=== PATIENT | female | born 1975 | race Two or more races ===

== ENCOUNTER 2024-06-02 14:08 | Outpatient (AMB) | payer MEDICAID, SELFPAY ==
--- NOTE | 2024-06-02 15:13 | PD.ORTHCLVIS ---
Vital signs 06/02/24 15:14 Height 1.6 m Height Method Stated Weight 104.099 kg Weight Measurement Method Standing Scale BMI 40.6 BP 121/84 Blood Pressure Source Automatic Cuff Blood Pressure Location Right Upper Arm Position Sitting Respiration 18 Pulse 87 Pulse Source Monitor Temp 98.1 F Temp Source Temporal Artery Scan Pulse Oximetry (%) 96 Oxygen Delivery Method Room Air Med/Allergies Allergies & Medications Allergies NKA Allergy (Unknown, Uncoded 06/02/24 15:15) No Known Allergies Allergy (Unknown, Uncoded 06/02/24 15:15) Medication Reconciliation pantoprazole 40 mg tablet,delayed release (Protonix) 40 mg PO QDAY #30 tabs 11/13/23 [Rx Confirmed 06/02/24] meloxicam 7.5 mg tablet 7.5 mg PO QDAY #45 tabs 06/02/24 [Rx] Subjective Visit Visit for: new patient and knee Immunization / Flu Flu Vaccine in the Last 12 Months: No Flu Vaccine Exclusion Criteria: No Exclusion Criteria History of Present Illness Chief complaint: KNEE PAIN Date of injury / onset of symptoms: YEARS Patient is a 49-year-old Female with left greater than right knee pain. She has had over 4 injections of both knees. The pain is starting affect her quality life and happiness. She Has not had anti-inflammatories Personal History Occupation: [employer] PMH: none Pain Pain level (0-10): 3 Pain duration: ALL DAY Pain location: outside (lateral) and anterior Pain quality: aching and other (specify) (POPPING SOUND ) Pain timing: increases with activity Associated signs & symptoms: other (specify) Ambulatory data Ambulatory device: none Treatments Number of previous injections: 4 Improvement with previous injections: Yes Improvement with PT: No Improvement with NSAIDS: n/a Review of Systems Review of Systems: All systems negative unless otherwise noted in HPI. Exam Exam Patient is in no acute distress and is cooperative with the examination today. Breathing is nonlabored. In no respiratory distress. Bilateral extremities were evaluated and demonstrates sensation intact to light touch. Palpable pedal pulses are present. No significant edema is present. Bilateral hips were examined. The patient has no pain with log roll of the hips. Internal rotation to 30 degrees and external rotation to 30 degrees is painless. Negative FADIR. The left knee was examined. The left knee is in [varus] alignment. Range of motion from [0-115] degrees. Knee is stable to varus and valgus as well as AP translation with <5mm. Patient has a [negative] McMurrays. There is [no] pain with patellofemoral compression and [no] crepitus noted. The knee is [tender] to palpation [medially]. The right knee was also examined. The right knee is in [varus] alignment. Range of motion from [0-120] degrees. Knee is stable to varus and valgus as well as AP translation with <5mm. Patient has a [negative] McMurrays. There is [no] pain with patellofemoral compression and [no] crepitus noted. The knee is [tender] to palpation [medially]. Assessment and Plan Problem List (1) Degenerative arthritis of knee, bilateral: Status: Acute Plan: Patient is a pleasant 49-year-old female with bilateral knee pain and bilateral knee arthritis. We discussed nonoperative and operative options. At this point in time I would recommend nonoperative treatment. I would like to get weightbearing x-rays as her last x-rays were supine to better serve assess the severity of the arthritis. Will get authorization for cortisone injections at the next visit. I sent her prescription for meloxicam Office Procedures GNS Level of Care Nursing/Assessment Patient Status: Established Patient Nursing Assessment/Reassesment: Medication Reconciliation, Update PMH in EMR and Vital Signs Coordination of Care: Complex Care and Chronic Disease 1-5, Education Complex Pt/Fam, Consent,records obtained, informed consent, 1 Ins Authorization, Lab and Imaging orders, Results/Orders obtained and Staff clarify orders Special Needs: Language special needs Established Patient Charge Established Patient Point Assignment: 125 Established Patient Point Charge: EP Level 4 (120-155) Past Medical History Past Medical History Have you ever been diagnosed with any of the following: Respiratory Problems Smoking: Yes Smoking Exposure: Yes
[2024-06-02 15:14] VITALS: BP 121/84; PULSE 87; RESP 18; TEMP 36.7; O2SAT 96; BMI 40.6
== END 2024-06-02 15:20 | disposition home or self-care (01) ==
LOC: HODSRG 14:08
PROVIDERS: PCP Physician Assistant; Referring Provider Physician Assistant; Supervising Provider Orthopaedic Surgery Adult Reconstructive Orthopaedic Surgery; Visit Provider Orthopaedic Surgery Adult Reconstructive Orthopaedic Surgery
DX: M17.0 Bilateral primary osteoarthritis of knee (principal); M25.562 Pain in left knee; M25.561 Pain in right knee
CPT/HCPCS: 99204; 99214; G0463

== ENCOUNTER 2024-06-15 07:56 | Outpatient (AMB) | payer MEDICAID, SELFPAY ==
[2024-06-15 08:06] VITALS: BP 117/68; PULSE 77; RESP 18; TEMP 36.4; O2SAT 95; BMI 40.9
--- NOTE | 2024-06-15 08:06 | ORTHONT_ITS ---
Vital signs 06/15/24 08:06 Height 1.6 m Height Method Stated Weight 104.808 kg Weight Measurement Method Standing Scale BMI 40.9 BP 117/68 Blood Pressure Source Automatic Cuff Blood Pressure Location Right Upper Arm Position Sitting Respiration 18 Pulse 77 Pulse Source Monitor Temp 97.5 F Temp Source Temporal Artery Scan Pulse Oximetry (%) 95 Oxygen Delivery Method Room Air Med/Allergies Allergies & Medications Allergies NKA Allergy (Unknown, Uncoded 06/15/24 08:07) No Known Allergies Allergy (Unknown, Uncoded 06/15/24 08:07) Medication Reconciliation pantoprazole 40 mg tablet,delayed release (Protonix) 40 mg PO QDAY #30 tabs 11/13/23 [Rx Confirmed 06/15/24] meloxicam 7.5 mg tablet 7.5 mg PO QDAY #45 tabs 06/02/24 [Rx Confirmed 06/15/24] Subjective Visit Visit for: follow up visit and x-rays Immunization / Flu Flu Vaccine in the Last 12 Months: No Flu Vaccine Exclusion Criteria: No Exclusion Criteria History of Present Illness Chief complaint: F/U XRAYS RESULTS Date of injury / onset of symptoms: YEARS Patient is a 49-year-old Female with left greater than right knee pain. She has had over 4 injections of both knees. The pain is starting affect her quality life and happiness. She Has not had anti-inflammatories Personal History Occupation: [employer] PMH: none Pain Pain level (0-10): 0 Pain duration: COMES AND GOES Pain location: outside (lateral) and anterior Pain quality: aching and other (specify) (POPPING SOUND ) Pain timing: increases with activity Associated signs & symptoms: other (specify) Ambulatory data Ambulatory device: none Treatments Number of previous injections: 4 Improvement with previous injections: No Improvement with PT: No Improvement with NSAIDS: n/a Review of Systems Review of Systems: All systems negative unless otherwise noted in HPI. Exam Exam Patient is in no acute distress and is cooperative with the examination today. Breathing is nonlabored. In no respiratory distress. Bilateral extremities were evaluated and demonstrates sensation intact to light touch. Palpable pedal pulses are present. No significant edema is present. Bilateral hips were examined. The patient has no pain with log roll of the hips. Internal rotation to 30 degrees and external rotation to 30 degrees is painless. Negative FADIR. The left knee was examined. The left knee is in [varus] alignment. Range of motion from [0-115] degrees. Knee is stable to varus and valgus as well as AP translation with <5mm. Patient has a [negative] McMurrays. There is [no] pain with patellofemoral compression and [no] crepitus noted. The knee is [tender] to palpation [medially]. The right knee was also examined. The right knee is in [varus] alignment. Range of motion from [0-120] degrees. Knee is stable to varus and valgus as well as AP translation with <5mm. Patient has a [negative] McMurrays. There is [no] pain with patellofemoral compression and [no] crepitus noted. The knee is [tender] to palpation [medially]. X-rays demonstrate moderate joint space narrowing of both knees. There are osteophytes present Assessment and Plan Problem List (1) Degenerative arthritis of knee, bilateral: Status: Acute Plan: Patient is a pleasant 49-year-old female with bilateral knee pain and bilateral knee arthritis. We discussed nonoperative and operative options. She has moderate arthritis we recommend continued conservative treatment. Recommend knee cortisone injections as patient would like to proceed with conservative treatment at this time. The risks and benefits of the procedure were reviewed with the patient and patient gave verbal consent to continue with the procedure. Procedure: performed by Dr. Valdes Using sterile technique the Bilateral knees were thoroughly prepped with alcohol, and approximately 1 cc of Kenalog 40 mg/mL and 4 cc of 1% lidocaine was injected into each knee without resistance into the medial tibial femoral joint space. The patient tolerated the procedure. Office Procedures GNS Level of Care Nursing/Assessment Patient Status: Established Patient Nursing Assessment/Reassesment: Medication Reconciliation, Update PMH in EMR and Vital Signs Coordination of Care: Complex Care and Chronic Disease 1-5, Education Complex Pt/Fam, Consent,records obtained, informed consent, Results/Orders obtained and Staff clarify orders Special Needs: Language special needs Established Patient Charge Established Patient Point Assignment: 95 Established Patient Point Charge: EP Level 3 (80-115) Surgical Proc/IM SQ injection Major Surgical Procedure: Yes (knee injections ) Medication Given Medication Given Medication Given: Yes Documented Dose Given: 8 Route: Infiitration Medication Given Medication Given Medication Given: Yes Documented Dose Given: 2 Route: Infiitration Office Meds Xylocaine 10 mg/mL (1 %) injection solution Performing Provider: Unruly Valdes MD Performing Location: [facility] Administered by: Unruly Valdes MD on 06/15/24 08:32 Dose Route Admin Location Dispensed Lot Number Expiration Date [facility] Supervisor [employer] 40 mL Infiltration 40 mL [id number] [facility] triamcinolone acetonide 40 mg/mL suspension for injection Performing Provider: Unruly Valdes MD Performing Location: [facility] Administered by: Unruly Valdes MD on 06/15/24 08:32 Dose Route Admin Location Dispensed Lot Number Expiration Date [facility] Supervisor [employer] 80 mg intra-articular 2 mL [id number] [employer] Past Medical History Past Medical History Have you ever been diagnosed with any of the following: Respiratory Problems Smoking: Yes Smoking Exposure: Yes
== END 2024-06-15 08:26 | disposition home or self-care (01) ==
LOC: HODSRG 07:56
PROVIDERS: PCP Physician Assistant; Referring Provider Physician Assistant; Supervising Provider Orthopaedic Surgery Adult Reconstructive Orthopaedic Surgery; Visit Provider Orthopaedic Surgery Adult Reconstructive Orthopaedic Surgery
DX: M17.0 Bilateral primary osteoarthritis of knee (principal); M25.562 Pain in left knee; M25.561 Pain in right knee
CPT/HCPCS: 20610; 99213; J3301; J3490; G0463

== ENCOUNTER → 2024-07-19 | Outpatient (CLI) | payer MEDICAID, SELFPAY ==
--- NOTE | 2024-07-19 13:45 | XR_ITS ---
Examination: Screening digital mammography, bilateral Computer aided detection 3-D breast Tomosynthesis, bilateral Date and time of exam: July 19, 2024 1340 hours Compared to mammograms dating to March 25, 2022 Indication: Screening Technique: Nonmagnified MLO, CC views of the breasts to been obtained, reconstructed from 3-D Tomosynthesis images. R2 computer aided detection program utilized for evaluation of suspicious masses and/or abnormal calcifications. 3-D Tomosynthesis images obtained. Findings: Scattered areas of fibroglandular density. Benign calcifications. No interval suspicious masses Impression: BI-RADS category II: Benign Findings. Recommend 1 year follow-up mammogram.
== END | disposition home or self-care (01) ==
LOC: CDIM 13:23
PROVIDERS: Referring Provider Student in an Organized Health Care Education/Training Program; Visit Provider Student in an Organized Health Care Education/Training Program
DX: Z12.31 Encounter for screening mammogram for malignant neoplasm of breast (principal); R92.323 Mammographic fibroglandular density, bilateral breasts; R92.1 Mammographic calcification found on diagnostic imaging of breast
CPT/HCPCS: 77063; 77067

== ENCOUNTER 2024-09-15 14:32 | Outpatient (AMB) | payer MEDICAID, SELFPAY ==
--- NOTE | 2024-09-15 14:37 | ORTHONT_ITS ---
Vital signs 09/15/24 14:40 Height 1.6 m Height Method Stated Weight 102.512 kg Weight Measurement Method Standing Scale BMI 40.0 BP 115/79 Blood Pressure Source Automatic Cuff Blood Pressure Location Left Upper Arm Position Sitting Respiration 19 Pulse 92 Pulse Source Monitor Temp 96.2 F L Temp Source Temporal Artery Scan Pulse Oximetry (%) 95 Oxygen Delivery Method Room Air Med/Allergies Allergies & Medications Allergies NKA Allergy (Unknown, Uncoded 09/15/24 14:40) No Known Allergies Allergy (Unknown, Uncoded 09/15/24 14:40) Medication Reconciliation pantoprazole 40 mg tablet,delayed release (Protonix) 40 mg PO QDAY #30 tabs 11/13/23 [Rx Confirmed 09/15/24] meloxicam 7.5 mg tablet 7.5 mg PO QDAY #45 tabs 06/02/24 [Rx Confirmed 09/15/24] Exam Exam Patient is in no acute distress and is cooperative with the examination today. Breathing is nonlabored. In no respiratory distress. Bilateral extremities were evaluated and demonstrates sensation intact to light touch. Palpable pedal pulses are present. No significant edema is present. Bilateral hips were examined. The patient has no pain with log roll of the hips. Internal rotation to 30 degrees and external rotation to 30 degrees is painless. Negative FADIR. The left knee was examined. The left knee is in [varus] alignment. Range of motion from [0-115] degrees. Knee is stable to varus and valgus as well as AP translation with <5mm. Patient has a [negative] McMurrays. There is [no] pain with patellofemoral compression and [no] crepitus noted. The knee is [tender] to palpation [medially]. The right knee was also examined. The right knee is in [varus] alignment. Range of motion from [0-120] degrees. Knee is stable to varus and valgus as well as AP translation with <5mm. Patient has a [negative] McMurrays. There is [no] pain with patellofemoral compression and [no] crepitus noted. The knee is [tender] to palpation [medially]. X-rays demonstrate moderate joint space narrowing of both knees. There are osteophytes present Assessment and Plan Problem List (1) Degenerative arthritis of knee, bilateral: Status: Acute Plan: Patient is a pleasant 49-year-old female with bilateral knee pain and bilateral knee arthritis. We discussed nonoperative and operative options. She has moderate arthritis we recommend continued conservative treatment. Recommend knee cortisone injections as patient would like to proceed with conservative treatment at this time. The risks and benefits of the procedure were reviewed with the patient and patient gave verbal consent to continue with the procedure. Procedure: performed by Dr. Valdes Using sterile technique the Bilateral knees were thoroughly prepped with alcohol, and approximately 1 cc of Kenalog 40 mg/mL and 4 cc of 1% lidocaine was injected into each knee without resistance into the medial tibial femoral joint space. The patient tolerated the procedure. Office Procedures GNS Level of Care Nursing/Assessment Patient Status: Established Patient Nursing Assessment/Reassesment: Medication Reconciliation, Update PMH in EMR and Vital Signs Coordination of Care: Complex Care and Chronic Disease 1-5, Education Complex Pt/Fam, Consent,records obtained, informed consent, Results/Orders obtained and Staff clarify orders Established Patient Charge Established Patient Point Assignment: 95 Established Patient Point Charge: EP Level 3 (80-115) MA Intake Visit Data Collection New Patient or Established: Established Patient (seen at [facility] within 3 years) Reason for Visit:: F/U BILATERAL KNEE INJECTIONS Seen by Clinical Staff ONLY (RN/MA): No Art Director Required: Yes PCP or OBGYN visit in last 3 months: Yes Hx Now: No Do You Feel Safe at Home: Yes Authorities Contacted: N/A Questionairres Past Medical History Past Medical History Have you ever been diagnosed with any of the following: Respiratory Problems Smoking: Yes Smoking Exposure: Yes Subjective Visit Visit for: follow up visit, knee and injections Immunization / Flu Flu Vaccine in the Last 12 Months: No Flu Vaccine Exclusion Criteria: No Exclusion Criteria History of Present Illness Chief complaint: bilateral knee pain Patient is a 49-year-old Female with left greater than right knee pain. She has had over 4 injections of both knees. The pain is starting affect her quality life and happiness. She Has not had anti-inflammatories Pain Pain level (0-10): 0 Associated signs & symptoms: none Ambulatory data Ambulatory device: none Treatments Number of previous injections: 2 Improvement with previous injections: Yes Improvement with PT: No Improvement with NSAIDS: no Review of Systems Review of Systems: All systems negative unless otherwise noted in HPI.
[2024-09-15 14:40] VITALS: BP 115/79; PULSE 92; RESP 19; TEMP 35.7; O2SAT 95; BMI 40.0
== END 2024-09-15 15:09 | disposition home or self-care (01) ==
LOC: HODSRG 14:32
PROVIDERS: PCP Family Medicine; Referring Provider Family Medicine; Supervising Provider Orthopaedic Surgery Adult Reconstructive Orthopaedic Surgery; Visit Provider Orthopaedic Surgery Adult Reconstructive Orthopaedic Surgery
DX: M17.0 Bilateral primary osteoarthritis of knee (principal); M25.562 Pain in left knee; M25.561 Pain in right knee
CPT/HCPCS: 20610; 99213; J3301; J3490; G0463

== ENCOUNTER 2024-11-02 18:10 | Emergency (ER) | payer MEDICAID, SELFPAY ==
[2024-11-02 19:09] VITALS: BP 145/85; PULSE 92; RESP 18; TEMP 36.9; O2SAT 99; BMI 39.8
--- NOTE | 2024-11-02 19:58 | XR_ITS ---
Examination: Transvaginal ultrasound of the pelvis, complete Technique: Transvaginal sonographic images pelvis performed using tinsley scale imaging Exam date and time: November 02, 2024 2008 hours INDICATIONS: Pelvic pain and bleeding beginning 3 days ago FINDINGS: Uterus 9.1 cm endometrial stipe 0.5 cm No uterine mass or intrauterine gestation Ovaries obscured by bowel gas IMPRESSION: Limited study No uterine mass or intrauterine gestation.
--- NOTE | 2024-11-02 20:07 | EDNOTE_ITS ---
ED Female Urogenital RME/HPI General Chief complaint: Abdominal Pain Stated complaint: LOWER ABDOMINAL PAIN Time Seen by Provider: 11/02/24 19:57 Arrival date/time: 11/02/24 18:10 49F with no significant PMH presents to ED with 3 days of pelvic pain and possibly some vaginal spotting. Patient denies N/V, diarrhea, and dysuria. Limitations: no limitations Related Data Previous Rx's ?Medication ?Instructions ?Recorded pantoprazole 40 mg tablet,delayed 40 mg PO QDAY #30 ta bs 11/13/23 release (Protonix) meloxicam 7.5 mg tablet 7.5 mg PO QDAY #45 tabs 05/10 12/30 Allergies Allergy/AdvReac Type Severity Reaction Status Date / Time NKA Allergy Unknown Uncoded 11/02/24 18:14 No Known Allergies Allergy Unknown Uncoded 11/02/24 18:14 Review of Systems Review of Systems Systems Reviewed: All systems reviewed, normal except as documented Constitutional Constitutional: Reports system reviewed and no additional complaints, except as documented, Denies fever(s) and Denies headache(s) ENT Ears, Nose, Mouth, and Throat: Denies disequilibrium and Denies headache(s) Cardiovascular Cardiovascular: Reports system reviewed and no additional complaints, except as documented, Denies chest pain and Denies dyspnea Respiratory Respiratory: Reports system reviewed and no additional complaints, except as documented, Denies cough and Denies dyspnea Gastrointestinal Gastrointestinal: Reports system reviewed and no additional complaints, except as documented, Denies abdominal pain, Denies nausea and Denies vomiting Genitourinary Genitourinary: Reports as per HPI, Reports abnormal vaginal bleeding and Reports pelvic pain Neurologic Neurologic: Reports system reviewed and no additional complaints, except as documented, Denies confusion, Denies disequilibrium and Denies headache(s) Psychiatric Psychiatric: Denies confusion Past Medical History Past Medical History NEUROLOGIC: Positive Neurological Disorders CARDIAC: Positive Cardiac Disorders RESPIRATORY: Positive Smoking and Smoking Exposure GASTROINTESTINAL: Positive Gastrointestinal Disorders GENITOURINARY: Positive Genitourinary Disorders Social History SMOKING STATUS: Never smoker ED Exam General Limitations: Present no limitations General appearance: Present alert and in no apparent distress Head Head exam: Present atraumatic Eye Eye exam: Present normal appearance, PERRL and EOMI ENT ENT exam: Present normal exam, normal oropharynx and mucous membranes moist Neck Neck exam: Present normal inspection, full ROM and trachea midline Chest Chest inspection: Present normal inspection and symmetric chest wall rise Respiratory Respiratory exam: Present normal lung sounds bilaterally Cardiovascular Cardiovascular exam: Present regular rate, normal rhythm and normal heart sounds Abdominal Exam Abdominal exam: Present soft and normal bowel sounds Extremities Exam Extremities exam: Present normal inspection and full ROM Back Exam Back exam: Present normal inspection and full ROM Neurological Exam Neurological exam: Present alert, oriented X3 and CN II-XII intact Psychiatric Psychiatric exam: Present normal affect and normal mood Skin Skin exam: Present warm, dry, intact and normal color Course Quality Measures none Orders Category Date Time Status US transvaginal Stat Exams 11/02/24 19:58 Completed CBC Stat Lab 11/02/24 20:52 Completed CMP [Comprehensive Metabolic Panel] Stat Lab 11/02/24 20:52 Completed HCG Qualitative,Urine Stat Lab 11/02/24 20:13 Completed Urinalysis, C/S if Indicated Stat Lab 11/02/24 20:13 Completed Vital Signs Vital signs: Vital Signs Temperature 98.5 F 11/02/24 19:09 Pulse Rate 92 11/02/24 19:09 Respiratory Rate 18 11/02/24 19:09 Blood Pressure 145/85 H 11/02/24 19:09 Pulse Oximetry (%) 99 11/02/24 19:09 Oxygen Delivery Method Room Air 11/02/24 19:09 O2 at 99% on RA and WNLs Urogenital - Female MDM Narrative MDM Narrative:: 49F with no significant PMH presents to ED with 3 days of pelvic pain and possibly some vaginal spotting. Patient denies N/V, diarrhea, and dysuria. Physical exam reveals no ab tenderness. Patient is afebrile, calm, and alert. US unremarkable. No leukocytosis or anemia. HCG neg. UA clean. CMP unremarkable. Patient data External records reviewed:: [facility] previous records Clinical information provided by:: patient Social determinants that could affect healthcare access:: none Patient has the following chronic illnesses:: none How is presenting disease/condition affected by chronic disease/condition?: no chronic disease Evaluation data The following diagnostics were reviewed and interpreted by me:: lab results and radiology exam(s) Lab and/or radiology exams considered but not ordered:: ordered Interpretation Summary: above Medications / Prescriptions Medications or Prescriptions considered but not ordered:: not ordered Medication administrations:: n/a Consultations Consultation(s) initiated? (list below): No Diagnosis Urogenital Female Differential Diagnosis: urinary tract infection, bacterial vaginosis, trichomoniasis, cervicitis, ovarian cyst, vaginitis, ruptured ovarian cyst, cyst of Bartholin's gland, cystitis, dysmenorrhea and other (appy, torsion, pelvic pain) Most likely diagnosis given after review of the tests above:: pelvic pain Admission Indicated Admission indicated?: not indicated Admission Request Was there a request for admission?: No Disposition Plan Disposition Plan: Discharge Discharge Attestation Discharge Attestation: The patient and all family members were given an opportunity to ask questions and understood the discharge instructions. Discharge instructions specifically effects, indications for sooner follow up or return to the emergency department, and the expected course of current diagnosis. Patient condition: Stable Discharge Plan Plan Patient Disposition: HOME (Self Care) Disposition Comment: Stable Prescriptions/Referrals Prescriptions/Med Rec: No Action meloxicam 7.5 mg tablet 7.5 mg PO QDAY Qty: 45 3RF pantoprazole [Protonix] 40 mg tablet,delayed release (DR/EC) 40 mg PO QDAY Qty: 30 0RF Referrals: No Primary/Family,Physician [Primary Care Provider] - In 1 week Problem List Clinical Impression: Pelvic pain Patient/Caregiver Discharge Instructions Education Materials: ED Abdominal Pain Unkn Cause Fem Additional Instructions: Please follow-up with PCP/OGYN within 24-48 hours and return immediately if symptoms worsen. Print Language: [place] Stand Alone Forms: Patient Portal Info Letter PA/WEB DEVELOPMENT MANAGER Supervising Physician MARCI/WEB DEVELOPMENT MANAGER Supervising Physician: Dr. Irwin
[2024-11-02 20:31] LABS: Collection Type, Urine Clean Catch; WBC,Urine 0 /hpf (0-5)
[2024-11-02 20:37] LABS: HCG Qualitative,Urine Negative
[2024-11-02 20:55] LABS: Amorphous Crystals,Urine Present (Absent); Bilirubin,Urine Negative (Negative); Blood,Urine Negative (Negative); Clarity,Urine Turbid (Clear/Hazy); Color,Urine Lt-Yellow (Lt Yel-Yel); Culture Indicated,Urine Not Indicated; Glucose, Urine Negative (Negative); Ketones,Urine Negative (Negative); Leukocyte Esterase,Urine Negative (Negative); Nitrite,Urine Negative (Negative); Protein,Urine Trace (Neg - Trace); RBC,Urine < 1 /hpf (0-3); Specific Gravity,Urine 1.027 (1.001-1.035); Squamous Epithelial Cell,Urine 1 /hpf (0-5); Urobilinogen,Urine Negative mg/dL (0.0-1.0)
[2024-11-02 21:24] LABS: Basophils % (Auto) 1 % (0-2.5); Eosinophils # (Auto) 0.1 Thou/mm3 (0.0-0.5); Eosinophils % (Auto) 1 % (0-10); Hematocrit 41.9 % (36.0-46.0); Hemoglobin 13.6 g/dL (12.0-16.0); Immature Granulocytes % (Auto) 0 % (0-0); Immature Granulocytes Auto 0.03 Thou/mm3 (0.00-0.00); Lymphocytes # (Auto) 2.1 Thou/mm3 (1.0-4.8); Lymphocytes % (Auto) 24 % (10-50); Mean Corpuscular HGB Conc 32.5 g/dl (31.0-37.0); Mean Corpuscular Hemoglobin 27.8 pg (25.0-35.0); Mean Corpuscular Volume 86 fL (80-100); Monocytes # (Auto) 0.6 Thou/mm3 (0.0-0.8); Monocytes % (Auto) 7 % (0-12); Neutrophils # (Auto) 5.9 Thou/mm3 (1.8-7.7); Neutrophils % (Auto) 67 % (37-80); Nucleated Red Blood Cell % 0 /100 WBC (0); Platelet Count 328 Thou/mm3 (140-440); RDW Standard Deviation 38.9 fL (36.4-46.3); White Blood Count 8.8 Thou/mm3 (3.6-11.0)
[2024-11-02 21:43] LABS: Alanine Aminotransferase 14 U/L (10-49); Albumin, Serum 4.4 gm/dL (3.5-5.0); Albumin/Globulin Ratio 1.3 (1.2-2.2); Alkaline Phosphatase 86 U/L (46-116); Anion Gap 9 (7-16); Aspartate Amino Transferase 15 U/L (0-34); BUN/Creatinine Ratio 21 Ratio (12-20); Bilirubin,Total 0.3 mg/dL (0.3-1.2); Blood Urea Nitrogen 15 mg/dL (9-23); Calcium 9.8 mg/dL (8.3-10.6); Calcium (Corrected) 9.8 mg/dL (8.5-10.1); Carbon Dioxide 28.2 mMol/L (20.0-31.0); Chloride 103 mMol/L (98-107); Creatinine (Component) 0.7 mg/dL (0.6-1.3); Estimated Creatinine Clearance 110.9 mL/min (>60); Globulin 3.3 gm/dL (2.3-3.5); Glucose 104 mg/dL (74-106); Osmolality,Calculated 280 (275-295); Potassium 4.1 mMol/L (3.4-5.1); Sodium 140 mMol/L (136-145); Total Protein 7.7 gm/dL (5.7-8.2); eGFR > 60 See Note
== END 2024-11-02 22:22 | disposition home or self-care (01) ==
PROVIDERS: Physician Assistant; Emergency Provider Emergency Medicine
DX: R10.2 Pelvic and perineal pain (principal)
CPT/HCPCS: 36415; 76830; 80053; 81001; 81025; 85025; 99284

== ENCOUNTER 2024-12-05 15:10 | Outpatient (AMB) | payer MEDICAID, SELFPAY ==
[2024-12-05 15:18] VITALS: BP 110/78; PULSE 85; RESP 17; TEMP 36.4; O2SAT 94; BMI 39.5
--- NOTE | 2024-12-05 15:18 | PD.ORTHCLVIS ---
Vital signs 12/05/24 15:18 Height 1.6 m Height Method Stated Weight 101.151 kg Weight Measurement Method Standing Scale BMI 39.5 BP 110/78 Blood Pressure Source Automatic Cuff Blood Pressure Location Left Upper Arm Position Sitting Respiration 17 Pulse 85 Pulse Source Monitor Temp 97.6 F Temp Source Temporal Artery Scan Pulse Oximetry (%) 94 L Oxygen Delivery Method Room Air Med/Allergies Allergies & Medications Allergies NKA Allergy (Unknown, Uncoded 12/05/24 15:19) No Known Allergies Allergy (Unknown, Uncoded 12/05/24 15:19) Medication Reconciliation pantoprazole 40 mg tablet,delayed release (Protonix) 40 mg PO QDAY #30 tabs 11/13/23 [Rx Confirmed 12/05/24] meloxicam 7.5 mg tablet 7.5 mg PO QDAY #45 tabs 06/02/24 [Rx Confirmed 12/05/24] Exam Exam Patient is in no acute distress and is cooperative with the examination today. Breathing is nonlabored. In no respiratory distress. Bilateral extremities were evaluated and demonstrates sensation intact to light touch. Palpable pedal pulses are present. No significant edema is present. Bilateral hips were examined. The patient has no pain with log roll of the hips. Internal rotation to 30 degrees and external rotation to 30 degrees is painless. Negative FADIR. The left knee was examined. The left knee is in [varus] alignment. Range of motion from [0-115] degrees. Knee is stable to varus and valgus as well as AP translation with <5mm. Patient has a [negative] McMurrays. There is [no] pain with patellofemoral compression and [no] crepitus noted. The knee is [tender] to palpation [medially]. The right knee was also examined. The right knee is in [varus] alignment. Range of motion from [0-120] degrees. Knee is stable to varus and valgus as well as AP translation with <5mm. Patient has a [negative] McMurrays. There is [no] pain with patellofemoral compression and [no] crepitus noted. The knee is [tender] to palpation [medially]. X-rays demonstrate moderate joint space narrowing of both knees. There are osteophytes present Assessment and Plan Problem List (1) Degenerative arthritis of knee, bilateral: Status: Acute Plan: Patient is a pleasant 49-year-old female with bilateral knee pain and bilateral knee arthritis. We discussed nonoperative and operative options. She has moderate arthritis we recommend continued conservative treatment. Recommend knee cortisone injections as patient would like to proceed with conservative treatment at this time. The risks and benefits of the procedure were reviewed with the patient and patient gave verbal consent to continue with the procedure. Procedure: performed by Dr. Valdes Using sterile technique the Bilateral knees were thoroughly prepped with alcohol, and approximately 1 cc of Kenalog 40 mg/mL and 4 cc of 1% lidocaine was injected into each knee without resistance into the medial tibial femoral joint space. The patient tolerated the procedure. Office Procedures GNS Level of Care Nursing/Assessment Patient Status: Established Patient Nursing Assessment/Reassesment: Medication Reconciliation, Update PMH in EMR and Vital Signs Coordination of Care: Complex Care and Chronic Disease 1-5, Consent,records obtained, informed consent, Education Simp Pt/Fam, Results/Orders obtained and Staff clarify orders Special Needs: Language special needs ([place] ) Established Patient Charge Established Patient Point Assignment: 90 Established Patient Point Charge: EP Level 3 (80-115) MA Intake Visit Data Collection New Patient or Established: Established Patient (seen at [facility] within 3 years) Reason for Visit:: 3 FU KNEE INJECTION Seen by Clinical Staff ONLY (RN/MA): No Soccer Referee Required: Yes PCP or OBGYN visit in last 3 months: Yes Hx Now: No Do You Feel Safe at Home: Yes Authorities Contacted: N/A Questionairres Past Medical History Past Medical History Have you ever been diagnosed with any of the following: Respiratory Problems Smoking: Yes Smoking Exposure: Yes Subjective Visit Visit for: follow up visit and knee (BILATERAL KNEE ) Immunization / Flu Flu Vaccine in the Last 12 Months: Yes Flu Vaccine Exclusion Criteria: Already Received History of Present Illness Chief complaint: bilateral knee pain Patient is a 49-year-old Female with left greater than right knee pain. She has had over 4 injections of both knees. The pain is starting affect her quality life and happiness. The last injections that worked for a while. She would like bilateral knee injections today Personal History Red flag PMH: none Pain Pain level (0-10): 0 Associated signs & symptoms: none Ambulatory data Ambulatory device: none Treatments Number of previous injections: 2 Improvement with previous injections: Yes Number of Physical Therapy sessions: 0 Improvement with PT: No Improvement with NSAIDS: n/a Review of Systems Review of Systems: All systems negative unless otherwise noted in HPI.
== END 2024-12-05 15:37 | disposition home or self-care (01) ==
LOC: HODSRG 15:10
PROVIDERS: Supervising Provider Orthopaedic Surgery Adult Reconstructive Orthopaedic Surgery; Visit Provider Orthopaedic Surgery Adult Reconstructive Orthopaedic Surgery
DX: M17.0 Bilateral primary osteoarthritis of knee (principal); M25.562 Pain in left knee; M25.561 Pain in right knee
CPT/HCPCS: 20610; 99213; J3301; J3490; G0463

== ENCOUNTER 2025-03-06 14:49 | Outpatient (AMB) | payer MEDICAID, SELFPAY ==
--- NOTE | 2025-03-06 15:23 | ORTHONT_ITS ---
Vital signs 03/06/25 15:30 Height 1.6 m Height Method Stated Weight 99.989 kg Weight Measurement Method Standing Scale BMI 39.0 BP 114/77 Blood Pressure Source Automatic Cuff Blood Pressure Location Left Upper Arm Position Sitting Respiration 19 Pulse 89 Pulse Source Monitor Temp 97.8 F Temp Source Temporal Artery Scan Pulse Oximetry (%) 94 L Oxygen Delivery Method Room Air Med/Allergies Allergies & Medications Allergies NKA Allergy (Unknown, Uncoded 03/06/25 15:30) No Known Allergies Allergy (Unknown, Uncoded 03/06/25 15:30) Medication Reconciliation pantoprazole 40 mg tablet,delayed release (Protonix) 40 mg PO QDAY #30 tabs 11/13/23 [Rx Confirmed 03/06/25] meloxicam 7.5 mg tablet 7.5 mg PO QDAY #45 tabs 03/06/25 [Rx] Exam Exam Patient is in no acute distress and is cooperative with the examination today. Breathing is nonlabored. In no respiratory distress. Bilateral extremities were evaluated and demonstrates sensation intact to light touch. Palpable pedal pulses are present. No significant edema is present. Bilateral hips were examined. The patient has no pain with log roll of the hips. Internal rotation to 30 degrees and external rotation to 30 degrees is painless. Negative FADIR. The left knee was examined. The left knee is in [varus] alignment. Range of motion from [0-115] degrees. Knee is stable to varus and valgus as well as AP translation with <5mm. Patient has a [negative] McMurrays. There is [no] pain with patellofemoral compression and [no] crepitus noted. The knee is [tender] to palpation [medially]. The right knee was also examined. The right knee is in [varus] alignment. Range of motion from [0-120] degrees. Knee is stable to varus and valgus as well as AP translation with <5mm. Patient has a [negative] McMurrays. There is [no] pain with patellofemoral compression and [no] crepitus noted. The knee is [tender] to palpation [medially]. X-rays demonstrate moderate joint space narrowing of both knees. There are osteophytes present Assessment and Plan Problem List (1) Degenerative arthritis of knee, bilateral: Status: Acute Plan: Patient is a pleasant 49-year-old female with bilateral knee pain and bilateral knee arthritis. We discussed nonoperative and operative options. She has moderate arthritis we recommend continued conservative treatment. Recommend knee cortisone injection as patient would like to proceed with conservative treatment at this time. The risks and benefits of the procedure were reviewed with the patient and patient gave verbal consent to continue with the procedure. Procedure: performed by Dr. Valdes Using sterile technique the left knee was thoroughly prepped with alcohol, and approximately 1 cc of Depo-Medrol 80mg/mL and 4 cc of 0.2% ropivacaine was injected without resistance into the medial tibial femoral joint space. The patient tolerated the procedure. Recommend knee cortisone injection as patient would like to proceed with conservative treatment at this time. The risks and benefits of the procedure were reviewed with the patient and patient gave verbal consent to continue with the procedure. Procedure: performed by Dr. Valdes Using sterile technique the Right knee was thoroughly prepped with alcohol, and approximately 1 cc of Depo-Medrol 80mg/mL and 4 cc of 0.2% ropivacaine was injected without resistance into the medial tibial femoral joint space. The patient tolerated the procedure. Office Procedures GNS Level of Care Nursing/Assessment Patient Status: Established Patient Nursing Assessment/Reassesment: Medication Reconciliation, Update PMH in EMR and Vital Signs Coordination of Care: Complex Care and Chronic Disease 1-5, Education Complex Pt/Fam, Consent,records obtained, informed consent, Results/Orders obtained and Staff clarify orders Special Needs: Language special needs Established Patient Charge Established Patient Point Assignment: 95 Established Patient Point Charge: EP Level 3 (80-115) Surgical Proc/IM SQ injection Major Surgical Procedure: Yes (BILATERAL KNEE INJECTION) Medication Given Medication Given Medication Given: Yes Documented Dose Given: 1 Route: Infiitration Medication Given Medication Given Medication Given: Yes Documented Dose Given: 1 Route: Infiitration Medication Given Medication Given Medication Given: Yes Documented Dose Given: 4 Route: Infiitration Medication Given Medication Given Medication Given: Yes Documented Dose Given: 4 Route: Infiitration Office Meds methylprednisolone acetate 80 mg/mL suspension for injection Performing Provider: Unruly Valdes MD Performing Location: [facility] Administered by: Unruly Valdes MD on 03/06/25 15:51 Dose Route Admin Location Dispensed Lot Number Expiration Date [facility] Risk Management Consultant 80 mg intra-articular 1 mL [id number] 01/05/27 [address]-9 [employer] methylprednisolone acetate 80 mg/mL suspension for injection Performing Provider: Unruly Valdes MD Performing Location: [facility] Administered by: Unruly Valdes MD on 03/06/25 15:51 Dose Route Admin Location Dispensed Lot Number Expiration Date [place] [employer] Management Consultant 80 mg intra-articular 1 mL [id number] 01/05/27 [address]-7 [employer] ropivacaine (PF) 2 mg/mL (0.2 %) injection solution Performing Provider: Unruly Valdes MD Performing Location: [facility] Administered by: Unruly Valdes MD on 03/06/25 15:51 Dose Route Admin Location Dispensed Lot Number Expiration Date [place] Risk Management [employer]ant 20 mL Infiltration 20 mL [id number] 06/07/26 10801-822-41 [facility] ropivacaine (PF) 2 mg/mL (0.2 %) injection solution Performing Provider: Unruly Valdes MD Performing Location: [facility] Administered by: Unruly Valdes MD on 03/06/25 15:51 Dose Route Admin Location Dispensed Lot Number Expiration Date [place] Risk Management Consultant 20 mL Infiltration 20 mL [id number] 06/07/26 80653-666-35 [facility] Questionairres Past Medical History Past Medical History Have you ever been diagnosed with any of the following: Respiratory Problems Smoking: Yes Smoking Exposure: Yes Subjective Visit Visit for: follow up visit and knee (BILATERAL KNEE ) Immunization / Flu Flu Vaccine in the Last 12 Months: Yes Flu Vaccine Exclusion Criteria: Already Received History of Present Illness Chief complaint: bilateral knee pain Patient is a 49-year-old Female with left greater than right knee pain. She has had over 4 injections of both knees. The pain is starting affect her quality life and happiness. The last injections that worked for a while. She would like bilateral knee injections today Personal History Red flag PMH: none Pain Pain level (0-10): 0 Associated signs & symptoms: none Ambulatory data Ambulatory device: none Treatments Number of previous injections: 2 Improvement with previous injections: Yes Number of Physical Therapy sessions: 0 Improvement with PT: No Improvement with NSAIDS: n/a Review of Systems Review of Systems: All systems negative unless otherwise noted in HPI.
[2025-03-06 15:30] VITALS: BP 114/77; PULSE 89; RESP 19; TEMP 36.6; O2SAT 94; BMI 39.0
== END 2025-03-06 15:38 | disposition home or self-care (01) ==
LOC: HODSRG 14:49
PROVIDERS: Supervising Provider Orthopaedic Surgery Adult Reconstructive Orthopaedic Surgery; Visit Provider Orthopaedic Surgery Adult Reconstructive Orthopaedic Surgery
DX: M17.0 Bilateral primary osteoarthritis of knee (principal); M25.562 Pain in left knee; M25.561 Pain in right knee
CPT/HCPCS: 20610; 99213; J1010; J2795; G0463

== ENCOUNTER 2025-05-18 21:30 | Emergency (ER) | payer MEDICAID, SELFPAY ==
[2025-05-18 22:00] VITALS: BP 120/81; PULSE 72; RESP 18; TEMP 36.8; O2SAT 97; BMI 39.6
[2025-05-18] MEDS: KETOROLAC INJ 60 MG/2 ML VIAL IM (22:28)
[2025-05-18] MEDS: BACLOFEN 10 MG TABLET PO (22:28)
--- NOTE | 2025-05-18 22:48 | EDNOTE_ITS ---
ED Back Injury Pain RME/HPI General Chief Complaint: Back Pain/Injury Stated Complaint: BACK INJURY Time Seen by Provider: 05/18/25 22:15 Arrival date/time: 05/18/25 21:30 49F with no significant PMH presents to ED with low back pain after she turned wrong the other day. Patient denies fall/trauma, dysuria, and bowel/bladder incontinence. Limitations: no limitations Related Data Previous Rx's ?Medication ?Instructions ?Recorded pantoprazole 40 mg tablet,delayed 40 mg PO QDAY #30 ta bs 11/13/23 release (Protonix) meloxicam 7.5 mg tablet 7.5 mg PO QDAY #45 tabs 02/07 05/03 Allergies Allergy/AdvReac Type Severity Reaction Status Date / Time No Known Allergies Allergy Verified 05/18/25 21:32 Review of Systems Review of Systems Systems Reviewed: All systems reviewed, normal except as documented Musculoskeletal Musculoskeletal: Reports as per HPI and Reports back pain Past Medical History Past Medical History NEUROLOGIC: Positive Neurological Disorders CARDIAC: Positive Cardiac Disorders RESPIRATORY: Positive Smoking and Smoking Exposure GASTROINTESTINAL: Positive Gastrointestinal Disorders GENITOURINARY: Positive Genitourinary Disorders Social History SMOKING STATUS: Never smoker ED Exam General Limitations: Present no limitations General appearance: Present alert and in no apparent distress Head Head exam: Present atraumatic Neck Neck exam: Present normal inspection, full ROM and trachea midline Chest Chest inspection: Present normal inspection and symmetric chest wall rise Neurological Exam Neurological exam: Present alert and oriented X3 Psychiatric Psychiatric exam: Present normal affect and normal mood Skin Skin exam: Present warm, dry, intact and normal color Course Quality Measures none Orders Category Date Time Status Baclofen [Lioresal] Med 05/18/25 22:15 Discontinued 10 mg PO X1 ONE Ketorolac Inj [Toradol Inj] Med 05/18/25 22:15 Discontinued 60 mg IM X1 ONE Vital Signs Vital signs: Vital Signs Temperature 98.3 F 05/18/25 22:00 Pulse Rate 72 05/18/25 22:00 Respiratory Rate 18 05/18/25 22:00 Blood Pressure 120/81 05/18/25 22:00 Pulse Oximetry (%) 97 05/18/25 22:00 Oxygen Delivery Method Room Air 05/18/25 22:00 O2 at 97% on RA and WNLs Back Pain / Injury MDM Narrative MDM Narrative:: 49F with no significant PMH presents to ED with low back pain after she turned wrong the other day. Patient denies fall/trauma, dysuria, and bowel/bladder incontinence. Physical exam reveals well-appearing female. Patient is afebrile, calm, and alert. Gait normal. Meds and mental health counselor given. Patient data External records reviewed:: [facility] previous records Clinical information provided by:: patient Social determinants that could affect healthcare access:: none Patient has the following chronic illnesses:: none How is presenting disease/condition affected by chronic disease/condition?: no chronic disease Evaluation data The following diagnostics were reviewed and interpreted by me:: other (specify) (none) Lab and/or radiology exams considered but not ordered:: not ordered Interpretation Summary: n/a Medications / Prescriptions Medications or Prescriptions considered but not ordered:: ordered Medication administrations:: Medication Administration History Discontinued Medications Baclofen (Baclofen 10 Mg Tablet) 10 mg PO X1 ONE Stop: 05/18/25 22:16 Last Admin: 05/18/25 22:28 Dose: 10 mg Documented By: IWONA Ketorolac Tromethamine (Ketorolac Inj 60 Mg/2 Ml Vial) 60 mg IM X1 ONE Stop: 05/18/25 22:16 Last Admin: 05/18/25 22:28 Dose: 60 mg Documented By: IWONA above Consultations Consultation(s) initiated? (list below): No Diagnosis Differential diagnosis back pain/injury: lumbar radiculopathy, sciatica, strain of lumbar region, renal colic, pyelonephritis, thoracic back pain, AAA and discitis Most likely diagnosis given after review of the tests above:: strain of lumbar region Admission Indicated Admission indicated?: not indicated Admission Request Was there a request for admission?: No Disposition Plan Disposition Plan: Discharge Discharge Attestation Discharge Attestation: The patient and all family members were given an opportunity to ask questions and understood the discharge instructions. Discharge instructions specifically effects, indications for sooner follow up or return to the emergency department, and the expected course of current diagnosis. Patient condition: Stable Discharge Plan Plan Patient Disposition: HOME (Self Care) Discharge Disposition comment: Stable Prescriptions/Referrals Prescriptions/Med Rec: No Action meloxicam 7.5 mg tablet 7.5 mg PO QDAY Qty: 45 3RF pantoprazole [Protonix] 40 mg tablet,delayed release (DR/EC) 40 mg PO QDAY Qty: 30 0RF Problem List Clinical Impression: Strain of lumbar region Patient/Caregiver Discharge Instructions Education Materials: ED Back Sprain/Strain Additional Instructions: Please follow-up with PCP within 24-48 hours and return immediately if symptoms worsen. If problem persists, recommend outpatient PT and/or MRI follow-up. In the meantime, rest, use ice/heat, and/or compression. NSAIDs like ibuprofen tend to work better for this type of pain. Print Language: Tajik Stand Alone Forms: Patient Portal Info Letter PA/DRIVER'S LICENSE REVIEWING OFFICER Supervising Physician PA/LOUIE Supervising Physician: Dr. Adams
== END 2025-05-18 22:32 | disposition home or self-care (01) ==
LOC: SERX 22:40
PROVIDERS: Emergency Provider Emergency Medicine; PCP Family Medicine
DX: S39.012A Strain of muscle, fascia and tendon of lower back, initial encounter (principal); X58.XXXA Exposure to other specified factors, initial encounter
CPT/HCPCS: 99283; J1885; A9270